=== PATIENT | male | born 1960 | race Caucasian/White ===

== ENCOUNTER 2016-08-16 06:19 | Emergency (ER) | payer OTHER ==
[~2016-08-16] VITALS: Ht 195.6 cm; Wt 114.7 kg
[~2016-08-16 06:19] MED LIST: ALLOPURINOL300 MG PO; AMLODIPINE BES2.5 MG PO; ATORVASTATIN CA80 MG PO; Aspirin E.C. PO; NORVASC5 MG PO; PRILOSEC40 MG PO; SYMBICORT60 INHALAT IH; VENTOLIN HFA18 GM IH
[2016-08-16 06:46] LABS: POINT-OF-CARE METER ID UU14100415
[2016-08-16 06:52] LABS: EOSINOPHIL (%) 1.5 % (0-5); EOSINOPHIL COUNT 0.1 K/uL (0-0.3); HEMATOCRIT 40.6 % (38.0-50.0); IMMATURE GRANULOCYTE (%) 0.4 % (0.0-0.7); IMMATURE GRANULOCYTE COUNT 0.2 K/uL; LYMPHOCYTE COUNT 0.9 K/uL (1.0-2.8); MCH 31.8 PG (29.0-34.0); MCHC 35.5 G/DL (30.0-36.0); MCV 89.6 FL (86-99); MEAN PLAT.VOLUME 10.9 uM^3 (9.0-12.4); MONOCYTE (%) 10.8 % (3-12); MONOCYTE COUNT 0.6 K/uL (0-0.8); NEUTROPHIL (%) 70.6 % (45-76); NEUTROPHIL COUNT 3.7 K/uL (1.8-6.4); PLATELET COUNT 110 K/uL (156-360); RBC DIS.WIDTH-CV 12.4 % (11.8-14.6); RBC DIS.WIDTH-SD 39.8 % (39-53); RED BLOOD COUNT 4.53 M/uL (4.00-5.50); WHITE BLOOD COUNT 5.3 K/uL (4.1-10.2)
[2016-08-16 07:44] LABS: ALKALINE PHOSPHATASE 90 IU/L (3-129); ANION GAP 14 MEQ/L (2-14); CHLORIDE 98 MEQ/L (99-109); GFR ESTIMATE (CALCULATED) > 59 mL/min/; GLUCOSE 143 mg/dL (70-99); LIPASE 64 U/L (1.0-51.0); POTASSIUM 4.2 MEQ/L (3.7-5.4); SAMPLE HEMOLYSIS CHECK 0; SAMPLE ICTERIC CHECK 1; SAMPLE LIPEMIA CHECK 0; SODIUM 135 MEQ/L (136-147); TOTAL BILIRUBIN 2.8 MG/DL (0.0-1.0); UREA NITROGEN (BUN) 15 mg/dL (9-23)
[2016-08-16] MEDS ORDERED: ANTIVERT25 MG PO (11:24)
[2016-08-16 11:49] VITALS: BP 142/70
== END 2016-08-16 11:51 | disposition home or self-care (01) ==
LOC: EME → EDBD 06:19 → EME 06:19
PROVIDERS: Emergency Medicine
DX: R42 Dizziness and giddiness (principal)
CPT/HCPCS: 70450; 71010; 76705; 80053; 82948; 83690; 85025; 93005; 99281; 99285; J2060; J2405; J2765; J7030

== ENCOUNTER 2017-05-22 02:21 | Inpatient (IN) | payer OTHER ==
[~2017-05-22] VITALS: Ht 195.6 cm; Wt 117.0 kg
[~2017-05-22 02:21] MED LIST changes: +ANTIVERT25 MG PO
[2017-05-22 02:50] LABS: HEMATOCRIT 40.1 % (38.0-50.0); MCH 33.4 PG (29.0-34.0); MCHC 36.4 G/DL (30.0-36.0); MCV 91.8 FL (86-99); MEAN PLAT.VOLUME 10.9 uM^3 (9.0-12.4); PLATELET COUNT 116 K/uL (156-360); RBC DIS.WIDTH-CV 12.6 % (11.8-14.6); RBC DIS.WIDTH-SD 42.5 % (39-53); RED BLOOD COUNT 4.37 M/uL (4.00-5.50); WHITE BLOOD COUNT 5.5 K/uL (4.1-10.2)
[2017-05-22 03:03] LABS: CHLORIDE 91 mEq/L (99-109); SODIUM 128 mEq/L (136-147)
[2017-05-22 03:05] LABS: GLUCOSE 129 mg/dL (70-99)
[2017-05-22 03:06] LABS: ANION GAP 17 MEQ/L (2-14)
[2017-05-22 03:09] LABS: GFR ESTIMATE (CALCULATED) > 59 mL/min/
[2017-05-22 03:10] LABS: UREA NITROGEN (BUN) 13 mg/dL (9-23)
[2017-05-22 03:17] LABS: TROP-I INTERPRETATION NEGATIVE; TROPONIN-I 0.02 ng/mL (0.0-0.30)
[2017-05-22 03:27] LABS: TOTAL BILIRUBIN 2.8 mg/dL (0.0-1.0)
[2017-05-22 03:28] LABS: ALKALINE PHOSPHATASE 178 IU/L (3-129)
[2017-05-22 03:31] LABS: DIRECT BILIRUBIN 1.9 mg/dL (0.0-0.3)
[2017-05-22 03:54] LABS: LIPASE 52 U/L (1.0-51.0)
[2017-05-22 08:00] LABS: ANION GAP 10 MEQ/L (2-14); CHLORIDE 95 MEQ/L (99-109); POTASSIUM 4.4 MEQ/L (3.7-5.4); SAMPLE HEMOLYSIS CHECK 0; SAMPLE ICTERIC CHECK 1; SAMPLE LIPEMIA CHECK 0; SODIUM 131 MEQ/L (136-147); TOTAL BILIRUBIN 3.2 MG/DL (0.0-1.0)
[2017-05-22 08:06] LABS: ALKALINE PHOSPHATASE 153 IU/L (3-129); GFR ESTIMATE (CALCULATED) > 59 mL/min/; GLUCOSE 121 mg/dL (70-99); UREA NITROGEN (BUN) 14 mg/dL (9-23)
[2017-05-22 08:10] LABS: TROP-I INTERPRETATION NEGATIVE; TROPONIN-I < 0.01 ng/mL (0.0-0.30)
[2017-05-22 09:57] LABS: SERUM ETHYL ALCOHOL < 10 mg/dL
[2017-05-22] MEDS ORDERED: OMEPRAZOLE40 M1 PO (11:17)
[2017-05-22] MEDS ORDERED: TRESIBA FL200 UNIT/1 SQ (11:20)
[2017-05-22] MEDS ORDERED: CIALIS2.5 MG PO (11:21)
[2017-05-22] MEDS ORDERED: HYDROCHLOROTH12.5 M3 PO (11:21)
[2017-05-22 13:08] VITALS: BP 150/78
[2017-05-22 15:30] VITALS: BP 139/80
[2017-05-22 16:48] LABS: POINT-OF-CARE METER ID UU14149397
[2017-05-22 20:12] VITALS: BP 148/84
[2017-05-22 21:20] LABS: POINT-OF-CARE METER ID UU14208753
[2017-05-22 23:50] VITALS: BP 133/71
[2017-05-23 04:23] VITALS: BP 132/71
[2017-05-23 06:33] LABS: MCH 33.8 PG (29.0-34.0); MCHC 34.9 G/DL (30.0-36.0); MEAN PLAT.VOLUME 11.3 uM^3 (9.0-12.4); PLATELET COUNT 89 K/uL (156-360); RBC DIS.WIDTH-CV 12.9 % (11.8-14.6); RBC DIS.WIDTH-SD 46.4 % (39-53); RED BLOOD COUNT 3.82 M/uL (4.00-5.50)
[2017-05-23 06:34] LABS: POINT-OF-CARE METER ID UU14117124
[2017-05-23 06:50] LABS: MCV 96.9 FL (86-99)
[2017-05-23 06:53] LABS: ALKALINE PHOSPHATASE 123 IU/L (3-129); ANION GAP 10 MEQ/L (2-14); CHLORIDE 103 MEQ/L (99-109); DIRECT BILIRUBIN 0.8 mg/dL (0.0-0.3); GFR ESTIMATE (CALCULATED) > 59 mL/min/; GLUCOSE 82 mg/dL (70-99); SAMPLE HEMOLYSIS CHECK 2; SAMPLE ICTERIC CHECK 0; SAMPLE LIPEMIA CHECK 0; SODIUM 137 MEQ/L (136-147); TOTAL BILIRUBIN 3.4 MG/DL (0.0-1.0); UREA NITROGEN (BUN) 10 mg/dL (9-23)
[2017-05-23 08:26] VITALS: BP 130/67
[2017-05-23 11:51] LABS: POINT-OF-CARE METER ID UU14149397
[2017-05-23 12:20] VITALS: BP 147/81
[2017-05-23 15:44] LABS: POINT-OF-CARE METER ID UU14188577
[2017-05-23 15:59] VITALS: BP 153/87
[2017-05-23 19:32] VITALS: BP 144/84
[2017-05-23 21:57] LABS: POINT-OF-CARE METER ID UU14188577
[2017-05-23 23:13] VITALS: BP 137/73
[2017-05-24 06:37] LABS: POINT-OF-CARE METER ID UU14188577
[2017-05-24 06:57] LABS: HEMATOCRIT 36.9 % (38.0-50.0); MCHC 33.9 G/DL (30.0-36.0); MCV 97.4 FL (86-99); MEAN PLAT.VOLUME 10.5 uM^3 (9.0-12.4); PLATELET COUNT 103 K/uL (156-360); RBC DIS.WIDTH-CV 12.9 % (11.8-14.6); RBC DIS.WIDTH-SD 46.2 % (39-53); RED BLOOD COUNT 3.79 M/uL (4.00-5.50); WHITE BLOOD COUNT 4.3 K/uL (4.1-10.2)
[2017-05-24 07:25] LABS: ALKALINE PHOSPHATASE 141 IU/L (3-129); ANION GAP 9 MEQ/L (2-14); CHLORIDE 105 MEQ/L (99-109); GFR ESTIMATE (CALCULATED) > 59 mL/min/; GLUCOSE 92 mg/dL (70-99); POTASSIUM 4.4 MEQ/L (3.7-5.4); SAMPLE HEMOLYSIS CHECK 0; SAMPLE ICTERIC CHECK 1; SAMPLE LIPEMIA CHECK 0; SODIUM 138 MEQ/L (136-147); UREA NITROGEN (BUN) 13 mg/dL (9-23)
[2017-05-24 07:38] VITALS: BP 148/84
[2017-05-24] MEDS ORDERED: THIAMINE HCL100 MG PO (08:11)
[2017-05-24] MEDS ORDERED: FOLIC ACID1 MG PO (08:11)
[2017-05-24] MEDS ORDERED: THERAGRAN1 TABLET PO (08:11)
== END 2017-05-24 10:26 | disposition home or self-care (01) | DRG 392 ==
LOC: EME 02:21 → EDOF 09:55 → 3EAST 09:55 → EDOF 09:55 → ENRESERV 09:59 → EDOF 10:13 → ENRESERV 11:06 → 3EAST 12:42
PROVIDERS: Emergency Medicine; Hospitalist
DX: K29.20 Alcoholic gastritis without bleeding (principal); E87.2 Acidosis; E87.1 Hypo-osmolality and hyponatremia; E83.42 Hypomagnesemia; F10.239 Alcohol dependence with withdrawal, unspecified; E86.0 Dehydration; I10 Essential (primary) hypertension; E11.40 Type 2 diabetes mellitus with diabetic neuropathy, unspecified; K21.9 Gastro-esophageal reflux disease without esophagitis; K74.60 Unspecified cirrhosis of liver; K70.9 Alcoholic liver disease, unspecified; M10.9 Gout, unspecified; E66.9 Obesity, unspecified; Z68.30 Body mass index [BMI] 30.0-30.9, adult; Z87.891 Personal history of nicotine dependence; Z79.4 Long term (current) use of insulin
CPT/HCPCS: 71010; 74177; 80048; 80053; 80076; 82948; 83605; 83690; 83735; 84484; 85027; 93005; 99281; 99285; G0378; G0480; J1630; J1644; J1815; J2060; J2270; J2405; J2765; J3010; J3411; J3475; J7030